=== PATIENT | female | born 1995 | race Caucasian/White ===

== ENCOUNTER 2022-08-25 23:34 | Emergency (ER) | payer OTHER ==
[2022-08-25 23:42] VITALS: BP 112/76; PULSE 64; RESP 18; TEMP 97.4; BMI 22.3
[2022-08-26] MEDS ORDERED: DIPHTH,PERTUSS(ACELL),TET 0.5 ML DISP.SYRIN IM ONE ×2 (02:06→03:59)
== END 2022-08-26 01:50 | disposition home or self-care (01) ==
LOC: JERFT 23:34 → JER 23:34 → JERFT 08-26 01:50
PROC: 0HQGXZZ Repair Left Hand Skin, External Approach (ICD-10-PCS; principal; 2022-08-25)
PROC: 3E0234Z Introduction of Serum, Toxoid and Vaccine into Muscle, Percutaneous Approach (ICD-10-PCS; 2022-08-25)
DX: S61.217A Laceration without foreign body of left little finger without damage to nail, initial encounter (principal); W26.0XXA Contact with knife, initial encounter
CPT/HCPCS: 12001-25; 90471; 90715; 99284-25